=== PATIENT | female | born 1955 | race Caucasian/White ===

== ENCOUNTER 2019-10-31 02:44 | Emergency (ER) | payer OTHER ==
[~2019-10-31] VITALS: Ht 160 cm; Wt 79.4 kg
[~2019-10-31 02:44] MED LIST: AMOCLA875 PO; CEPH500 PO; DIPH25 PO; DIPH50 PO; DOXY100 PO; HYDACE5 PO; IBUP200 PO; IBUP600 PO; IBUP800 PO; LEVFLO500 PO; LORA1 PO; RXCLIN PO; SINEX
[2019-10-31] MEDS ORDERED: Bactrim Ds Tab1 EACH PO (05:17)
== END 2019-10-31 06:24 | disposition home or self-care (01) ==
LOC: ER 02:44
DX: H60.12 Cellulitis of left external ear (principal); H66.42 Suppurative otitis media, unspecified, left ear; Z88.1 Allergy status to other antibiotic agents; Z88.5 Allergy status to narcotic agent; Z79.899 Other long term (current) drug therapy; Z87.891 Personal history of nicotine dependence
CPT/HCPCS: A9270-GY

== ENCOUNTER 2021-04-03 07:11 | Day surgery (SDC) | payer OTHER ==
[~2021-04-03] VITALS: Ht 157.5 cm; Wt 78.7 kg
[~2021-04-03 07:11] MED LIST changes: +Bactrim Ds Tab1 EACH PO
--- NOTE | 2021-04-03 09:30 | NUR ---
04/03/21 0930 NELDA JUNE PT STATED PRIOR TO PROCEDURE THAT HER RESULTS FROM PREP WERE BROWN WITH SEDIMENT. PT STATED SHE VOMITED THE SECOND BOTTLE OF PREP. PT WAS GIVEN AN ENEMA AND RESULTS WERE REPORTED TO BE CLEAR. DR CASH MADE AWARE. PT'S PREP DURING PROCEDURE WAS NOT ADEQUATE. DR CASH INFORMED PT TO COME BACK IN 5 YEARS FOR REPEAT.
== END 2021-04-03 09:07 | disposition home or self-care (01) ==
LOC: ORSCSDS 07:11
PROVIDERS: Surgery
PROC: 0DBP8ZX Excision of Rectum, Via Natural or Artificial Opening Endoscopic, Diagnostic (ICD-10-PCS; principal; 2021-04-03 08:30)
DX: Z12.11 Encounter for screening for malignant neoplasm of colon (principal); Z86.010 Personal history of colon polyps; K63.5 Polyp of colon; I10 Essential (primary) hypertension; Z87.891 Personal history of nicotine dependence
CPT/HCPCS: 88305; J2704; J7120

== ENCOUNTER → 2024-10-08 | Outpatient (CLI) | payer MEDICARE, OTHER ==
[2024-10-08 18:04] LABS: Source, Urine Voided
[2024-10-08 19:17] LABS: Appearance, Urine Hazy (Clear); Bilirubin, Urine Neg (Neg); Blood, Urine 2+ (Neg); Color, Urine Yellow (P-Yellow); Glucose Qualitative, Urine Neg (Neg); Ketones, Urine Neg (Neg); Leukocyte Esterase, Urine 3+ (Neg); Nitrite, Urine Neg (Neg); Protein, Urine Neg (Neg); Specific Gravity, Urine 1.015 (1.003-1.022); Urobilinogen, Urine NORM (Normal)
[2024-10-08 19:34] LABS: Bacteria Mod /hpf; Red Blood Cells, Urine 0-2 /hpf (0-2); Squamous Epithelial Cells Mod /hpf (Few)
== END | disposition home or self-care (01) ==
LOC: LAB 17:59 → LAB SHORT 17:59
PROVIDERS: Nurse Practitioner Family
DX: N39.0 Urinary tract infection, site not specified (principal)
CPT/HCPCS: 81001; 87077; 87086; 87186

== ENCOUNTER → 2025-05-12 | Outpatient (CLI) | payer MEDICARE, OTHER | LOC: LAB 14:20 → LAB SHORT 14:20 | DX: R30.0 Dysuria (principal); R35.0 Frequency of micturition; N39.0 Urinary tract infection, site not specified | CPT/HCPCS: 87086 ==

== ENCOUNTER → 2025-07-23 | Outpatient (CLI) | payer MEDICARE, OTHER | LOC: LAB 10:00 | DX: N39.0 Urinary tract infection, site not specified (principal) ==

== ENCOUNTER → 2025-08-08 | Outpatient (CLI) | payer MEDICARE, OTHER | LOC: LAB 15:50 → LAB SHORT 15:50 | DX: N39.0 Urinary tract infection, site not specified (principal) | CPT/HCPCS: 87077; 87086; 87186 ==